=== PATIENT | male | born 1950 | race Caucasian/White ===

== ENCOUNTER 2017-06-08 09:03 | Emergency (ER) | payer OTHER ==
[2017-06-08 09:14] VITALS: TEMP 97.9; BMI 20.5
--- NOTE | 2017-06-08 09:39 | PDOC ---
History of Present Illness <RachelGalindo Reyes - Last Filed: 06/08/17 11:53> - General History Source: Patient, Spouse Exam Limitations: No Limitations - History of Present Illness Initial Comments: 06/08/17 09:59 This is a 66 yo male with h/o left kidney stone one year ago, and chronic redicuble asymptomatic right inguinal hernia, who presents c/o right mid-back pain since night. The pain like a squeezing and constant 5/10 with occasional increase to 9/10. The pain reached a maximum several times throughout the night, radiating to the right abdomen. It is not positional and not exacerbated by movement or jostling, and is partially relieved by heating pad application. He took an oxycodone (from a prior prescription) last night which did help relieve the pain. He notes brief periods of nausea last night when the pain was maximal, but he denies any blood in the urine, strange smells or odors to the urine, pain on urination, new testicular swelling, testicular pain, penile lesions or discharge, rash, vomiting, diarrhea, constipation, chest pain, SOB, fever, chills, or other symptoms. He states that this pain feels the same as his prior kidney stone, for which he was seen at an outside ED and had a CT scan showing multiple stones in his left kidney. His pain at that time resolved spontaneously, although he never saw a stone pass. <Juana Lange - Last Filed: 06/08/17 14:32> - General Chief Complaint: Pain, Acute Stated Complaint: R FLANK PAIN Time Seen by Provider: 06/08/17 09:05 Past History <RachelGalindo Reyes - Last Filed: 06/08/17 11:53> - Past Medical History Kidney Stones: Yes (LEFT) - Psycho/Social/Smoking Cessation Hx Anxiety: No Suicidal Ideation: No Smoking History: Never smoked Have you smoked in the past 12 months: No Information on smoking cessation initiated: No Hx Alcohol Use: Yes (1 GLASS OF SCOTCH DAILY) Drug/Substance Use Hx: No Substance Use Type: Alcohol <Juana Lange - Last Filed: 06/08/17 14:32> - Past Medical History Allergies/Adverse Reactions: Allergies Allergy/AdvReac Type Severity Reaction Status Date / Time No Known Allergies Allergy Unverified 06/08/17 09:04 Home Medications: Ambulatory Orders Naproxen [EC-Naprosyn 375 MG] 375 mg PO BID PRN #14 tab 06/08/17 Oxycodone HCl/Acetaminophen [Percocet 5-325 mg Tablet] 1 tab PO Q4H PRN #10 tablet MDD 6 06/08/17 Tamsulosin HCl [Flomax] 0.4 mg PO DAILY #7 cap.er.24h 06/08/17 Review of Systems - Review of Systems Constitutional: No: Chills, Fever, Unexplained wgt Loss HEENTM: No: Nose Congestion, Throat Pain Respiratory: No: Cough, Shortness of Breath Cardiac (ROS): No: Chest Pain, Palpitations ABD/GI: Yes: Nausea, Other (right abdominal pain, right flank pain). No: Constipated, Diarrhea, Vomiting : No: Burning, Dysuria Musculoskeletal: Yes: Back Pain. No: Neck Pain Integumentary: No: Bruising, Rash Neurological: No: Headache, Numbness, Tingling, Weakness, Dizziness Endocrine: No: Unexplained Weight Gain, Unexplained Weight Loss <Lange,Juana - Last Filed: 06/08/17 14:32> *Physical Exam - Vital Signs Last Vital Signs Temp Pulse Resp BP Pulse Ox 97.9 F 68 16 138/83 100 06/08/17 09:04 06/08/17 10:53 06/08/17 10:53 06/08/17 11:49 06/08/17 09:04 <Galindo Ramos - Last Filed: 06/08/17 11:53> - Vital Signs Last Vital Signs Temp Pulse Resp BP Pulse Ox 97.9 F 67 16 150/102 100 06/08/17 09:04 06/08/17 09:04 06/08/17 09:04 06/08/17 09:04 06/08/17 09:04 - Physical Exam General Appearance: Yes: Nourished. No: Apparent Distress HEENT: positive: EOMI, Normal Voice, Hearing Grossly Normal. negative: Scleral Icterus (R), Scleral Icterus (L), Nasal Congestion Neck: positive: Trachea midline, Supple. negative: Tender, Rigid Respiratory/Chest: positive: Lungs Clear, Normal Breath Sounds. negative: Respiratory Distress, Crackles, Rhonchi, Stridor, Wheezing Cardiovascular: positive: Regular Rhythm, Regular Rate. negative: Murmur Gastrointestinal/Abdominal: positive: Normal Bowel Sounds, Tender (mild to right mid-abdomen), Flat, Soft. negative: Organomegaly, Pulsatile Mass, Guarding, Rebound Male Genitalia: positive: hernia (moderate sized nontender and reducible right inguinal hernia present in the proximal scrotal sac on standing). negative: testicular tenderness Musculoskeletal: positive: Normal Inspection, CVA Tenderness (R). negative: Decreased Range of Motion, Vertebral Tenderness Extremity: positive: Normal Capillary Refill, Normal Inspection, Normal Range of Motion. negative: Tender, Cyanosis Integumentary: positive: Normal Color, Dry, Warm. 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 No gallbladder stones/sludge, no wall thickening, no pericholecystic fluid <Juana Lange - Last Filed: 06/08/17 14:32> ED Treatment Course - LABORATORY CBC & Chemistry Diagram: 06/08/17 09:10 06/08/17 09:10 - ADDITIONAL ORDERS Additional order review: Laboratory Results 06/08/17 06/08/17 09:10 09:10 Sodium 135 L Potassium 4.3 Chloride 104 Carbon Dioxide 26 Anion Gap 5 L BUN 21 H Creatinine 0.8 Creat Clearance w eGFR > 60 Random Glucose 121 H Calcium 9.2 Total Bilirubin 1.2 H AST 18 ALT 17 Alkaline Phosphatase 95 H Total Protein 7.4 Albumin 4.4 Lipase 28 Urine Color Quin Urine Appearance Clear Urine pH 7.0 Ur Specific [place] 1.015 Urine Protein Trace Urine Glucose (UA) Negative Urine Ketones Negative Urine Blood 3+ H Urine Nitrite Negative Urine Bilirubin Negative Urine Urobilinogen 0.2 Ur Leukocyte Esterase Negative Urine RBC 20-30 Urine WBC 1-3 Ur Epithelial Cells Rare 06/08/17 09:10 RBC 4.88 MCV 89.7 MCHC 34.3 RDW 12.5 MPV 8.3 Neutrophils % 83.6 H Lymphocytes % 10.0 Monocytes % 3.5 L Eosinophils % 0.3 Basophils % 2.6 H - RADIOLOGY Radiology Studies Ordered: Category Date Time Status ABDOMEN & PELVIS CT W/O CONTR [CT] Stat CT Scan 06/08/17 10:06 Completed - Medications Given in the ED: ED Medications Discontinued Medications Generic Name Dose Route Start Last Admin Trade Name Amisha PRN Reason Stop Dose Admin Ketorolac Tromethamine 30 mg 06/08/17 10:53 06/08/17 10:55 Toradol Injection - IVPUSH 06/08/17 10:54 30 mg ONCE ONE Administration <Galindo Ramos - Last Filed: 06/08/17 11:53> - LABORATORY CBC & Chemistry Diagram: 06/08/17 09:10 06/08/17 09:10 <Juana Lange - Last Filed: 06/08/17 14:32> Medical Decision Making - Medical Decision Making 06/08/17 12:03 66 yo patient with h/o left kidney stone one year ago, asymptomatic right inguinal hernia, p/w with similar right-sided flank pain. Right CVA tenderness and right mid-abdominal pain on exam without Bustamante's sign , tenderness to McBurney's point, or peritoneal signs. Moderate sized reducible right inguinal hernia which is nontender. Right ureteral colic is the most likely possibility. UA, CBC, CMP, CT abdomen/pelvis ordered. Also considered on the ddx are cholecystitis, hepatitis, appendicitis, diverticulitis. The patient does not fit the typical profile for cholecystitis (he is thin, male , 66). Bedside US without e/o hydronephrosis, cholelithiasis, wall thickening, or pericholecystic fluid. CMP without e/o hepatitis on LFT evaluation. CT does show about a 3x3mm stone at the right UVJ. The patient is given a bolus of crystalloid IVF and #1 Flomax her ein the ED. Discharged home with prescription for Flomax, Percocet, Naproxen, and instructions to f/u with PCP. <Juana Lange - Last Filed: 06/08/17 14:32> *DC/Admit/Observation/Transfer - Discharge Dispostion Admit: No <Galindo Ramos - Last Filed: 06/08/17 11:53> - Discharge Dispostion Admit: No - Attestations Physician Attestion: 06/08/17 14:31 I, Dr. Juana Lange, attest that this document has been prepared under my direction and personally reviewed by me in its entirety. I further attest, that it accurately reflects all work, treatment, procedures and medical decision -making performed by me. <Juana Lange - Last Filed: 06/08/17 14:32> Diagnosis at time of Disposition: Renal colic on right side - Discharge Dispostion Disposition: HOME Condition at time of disposition: Stable - Prescriptions Prescriptions: Naproxen [EC-Naprosyn 375 MG] 375 mg PO BID PRN #14 tab PRN Reason: Pain Tamsulosin HCl [Flomax] 0.4 mg PO DAILY #7 cap.er.24h Oxycodone HCl/Acetaminophen [Percocet 5-325 mg Tablet] 1 tab PO Q4H PRN #10 tablet MDD 6 PRN Reason: Pain - Referrals Referrals: Damián Saldaña MD [Staff Physician] - 2 Days - Patient Instructions Printed Discharge Instructions: DI for Kidney Stones Additional Instructions: You were evaluated today for right flank pain due to a kidney stone. The CT scan shows a 3 mm stone just about ready to pass into the bladder. Take plenty of fluids every day. Take Naprosyn 375 mg twice a day if needed for pain. Take Percocet, but only if you have very severe pain. Follow-up with Dr. Damián Saldaña, urologist. Watch for any symptoms of fever, intractable pain, or other serious symptoms. Return to the emergency department if needed. Otherwise follow-up with the urologist.
[2017-06-08 09:41] LABS: URINE APPEARANCE Clear; URINE BILIRUBIN Negative (NEGATIVE); URINE GLUCOSE (UA) Negative (NEGATIVE); URINE KETONE Negative (NEGATIVE); URINE LEUK ESTERASE Negative (NEGATIVE); URINE NITRITE Negative (NEGATIVE); URINE PROTEIN Trace (NEGATIVE); URINE UROBILINOGEN 0.2 (0.2-1.0)
[2017-06-08 09:42] LABS: BASOPHIL 2.6 % (0-2.0); EOSINOPHIL 0.3 % (0-4.5); MCH 30.8 pg (25.7-33.7); MCHC 34.3 g/dl (32.0-35.9); MEAN CELL VOLUME 89.7 fl (80-96); MEAN PLT VOLUME 8.3 fl (7.5-11.1); NEUTROPHILS 83.6 % (42.8-82.8); PLATELET COUNT 364 K/MM3 (134-434); RDW 12.5 % (11.9-15.9); URINE BLOOD 3+ (NEGATIVE); URINE COLOR AMBER; WHITE BLOOD COUNT 11.6 K/mm3 (4.0-10.8)
[2017-06-08] MEDS ORDERED: SODIUM CHLORIDE 1,000 ML IV SCH (09:45)
[2017-06-08 09:51] LABS: URINE RBC 20-30 /hpf (0-3)
[2017-06-08 09:56] LABS: ALBUMIN 4.4 g/dl (3.5-5.0); ALK PHOS 95 U/L (32-92); ANION GAP 5 (8-16); BILIRUBIN,TOTAL 1.2 mg/dl (0.2-1.0); CALCIUM 9.2 mg/dl (8.4-10.2); CO2 26 mmol/L (22-28); CREATININE 0.8 mg/dl (0.6-1.3); GLUCOSE,RANDOM 121 mg/dl (74-106); SGOT/AST 18 U/L (10-42); SGPT/ALT 17 U/L (10-40); TOT PROT 7.4 g/dl (6.4-8.3)
[2017-06-08] MEDS ORDERED: KETOROLAC TROMETHAMINE 30 MG/1 ML VIAL ONE (10:53)
[2017-06-08] MEDS ORDERED: KETOROLAC TROMETHAMINE 30 MG/1 ML VIAL IVPUSH ONE (10:53)
[2017-06-08 10:54] VITALS: PULSE 68
[2017-06-08 11:49] VITALS: BP 138/83
[2017-06-08] MEDS ORDERED: TAMSULOSIN HCL 0.4 MG CAP.ER.24H (FP) PO ONE (12:00)
[2017-06-08] MEDS ORDERED: TAMSULOSIN HCL 0.4 MG CAP.ER.24H (FP) ONE (12:01)
--- NOTE | 2017-06-08 12:27 | PDOC ---
Attending Attestation - Resident Resident Name: Lange,Juana - ED Attending Attestation I have performed the following: I have examined & evaluated the patient, The case was reviewed & discussed with the resident, I agree w/resident's findings & plan - HPI HPI: 06/08/17 12:23 Patient with prior history of left renal colic, one year ago, CT scan showed multiple intrarenal stones as well as one in the ureter. [place] [facility]. Patient developed symptoms of vague right flank pain followed by severe right flank pain 3 last night. Symptoms started 2 days ago, and were severe last night overnight. There was nausea but no vomiting. No fever. No gross hematuria. Pain is in the right flank area radiating to the right mid abdomen. - Physicial Exam PE: 06/08/17 12:24 Examination there is no CVA tenderness. There is no right upper quadrant tenderness. There is no Bustamante sign. There is no right lower quadrant tenderness. The abdomen is totally benign. with positive reducible inguinal hernia bilateral. Nontender. - Medical Decision Making 06/08/17 12:25 CT scan of the abdomen and pelvis shows a 3 mm stone at the distal right UVJ. There is mild hydronephrosis. Impression: Laboratory studies reviewed. The creatinine is normal. The white blood cell count is slightly elevated at 11.6. The urinalysis shows microscopic hematuria but no signs of infection. These findings are all consistent with an uncomplicated kidney stone. The patient will be continued on oral hydration and he completed IV hydration in the ED. He will follow-up with his urologist at [facility]. Flomax, Naprosyn, and a small quantity of Percocet have been prescribed for the kidney stone. His pain prior to discharge was 0/10 after IV Toradol. He was discharged in stable condition, ambulating with his , asking if he could go back to work today.
== END 2017-06-08 12:06 | disposition home or self-care (01) ==
LOC: FER 09:03
PROC: 3E0333Z Introduction of Anti-inflammatory into Peripheral Vein, Percutaneous Approach (ICD-10-PCS; principal; 2017-06-08)
PROC: 3E0337Z Introduction of Electrolytic and Water Balance Substance into Peripheral Vein, Percutaneous Approach (ICD-10-PCS; 2017-06-08)
DX: N23 Unspecified renal colic (principal)
CPT/HCPCS: 36415; 74176-TC; 80053; 81003; 81015; 83690; 85025; 99282-25